=== PATIENT | male | born 1965 | race Caucasian/White ===

== ENCOUNTER 2021-05-22 13:40 | Inpatient (IN) | payer OTHER, SELFPAY ==
[~2021-05-22] VITALS: Ht 170.2 cm; Wt 126.1 kg
[~2021-05-22 13:40] MED LIST: POTASSIUM CHLORIDE 10 MEQ TABER PO PRN
[2021-05-22 13:52] VITALS: BP 131/89
[2021-05-22] MEDS ORDERED: DEXAMETHASONE 4 MG/ML VIAL IVP ONE (15:55)
[2021-05-22] MEDS ORDERED: AZITHROMYCIN 500 MG in DEXTROSE 5% 250 ML IV ONE (16:45)
[2021-05-22 17:03] LABS: BASOPHILS % (AUTO) 0.1 % (0.0-2.0); EOSINOPHILS # (AUTO) 0.1 K/uL (0-0.4); EOSINOPHILS % (AUTO) 0.8 % (0.0-4.0); HEMATOCRIT 42.9 % (36-52); HEMOGLOBIN 14.6 g/dL (12.0-18.0); LYMPHOCYTES % (AUTO) 14.2 % (20.5-51.1); MEAN CORPUSCULAR HEMOGLOBIN 30 pg (27-31); MEAN CORPUSCULAR HGB CONC 34 g/dL (33-37); MEAN CORPUSCULAR VOLUME 87.7 fL (80-94); MONOCYTES # (AUTO) 0.5 K/uL (0.8-1.0); MONOCYTES % (AUTO) 8.1 % (1.7-9.3); NEUTROPHILS # (AUTO) 5.2 K/uL (1.8-7.7); NEUTROPHILS % (AUTO) 76.8 % (42.2-75.2); PLATELET COUNT (AUTO) 275 K/uL (140-450); RED BLOOD CELL COUNT(AUTO) 4.89 MIL/uL (4.20-6.10); RED CELL DISTRIBUTION WIDTH 13.5 % (11.6-13.7); WHITE BLOOD COUNT (AUTO) 6.8 K/uL (4.8-10.8)
[2021-05-22 17:47] LABS: C-REACTIVE PROTEIN QUANT 12.3 mg/dL (0.0-0.9)
[2021-05-22 18:18] LABS: ALBUMIN 3.2 g/dL (3.4-5.0); CREATININE 0.8 mg/dL (0.6-1.3); POTASSIUM 3.1 mmol/L (3.5-5.1); TOTAL BILIRUBIN 0.7 mg/dL (0.0-1.0)
[2021-05-22 18:38] LABS: CKMB RELATIVE INDEX 0.2 (0.0-2.5); CREATINE KINASE MB 1.2 ng/mL (0-3.6)
[2021-05-22 18:48] LABS: D-DIMER > 5000 ng/ml (0-400)
[2021-05-22 18:51] LABS: PROTHROMBIN TIME 10.3 secs (10.8-13.4)
[2021-05-22 19:07] LABS: ANION GAP 20.3 (8-16); CARBON DIOXIDE 23.8 mmol/L (21-32)
[2021-05-22] MEDS ORDERED: HYDROcodone/APAP 5/325 MG 1 TAB TAB PO PRN (19:25)
[2021-05-22] MEDS ORDERED: SODIUM PHOS / POTASSIUM PHOS 1 PKT PDR PO PRN (19:25)
[2021-05-22] MEDS ORDERED: MORPHINE SULFATE 2 MG/ML SYR IVP PRN (19:25)
[2021-05-22] MEDS ORDERED: MAGNESIUM OXIDE 400 MG TAB PO PRN (19:25)
[2021-05-22] MEDS ORDERED: DOCUSATE SODIUM 100 MG GELCAP PO PRN (19:25)
[2021-05-22] MEDS ORDERED: ONDANSETRON 4 MG/2 ML VIAL IM/IVP PRN (19:25)
[2021-05-22] MEDS ORDERED: ACETAMINOPHEN 325 MG TAB PO PRN (19:25)
[2021-05-22 20:03] LABS: MAGNESIUM 2.4 mg/dL (1.8-2.4); PHOSPHORUS 3.6 mg/dL (2.5-4.9)
[2021-05-22 20:12] LABS: FIBRINOGEN 542 mg/dL (200-400)
[2021-05-23 00:05] LABS: RSV NEGATIVE (NEGATIVE)
--- NOTE | 2021-05-23 01:33 | NUR ---
PT TAKEN TO BED 3
[2021-05-23] MEDS ORDERED: ALBUTEROL SULFATE/IPRATROPIU 3 ML SOL IH PRN (02:25)
--- NOTE | 2021-05-23 03:25 | NUR ---
PT GIVEN WATER AND URINAL. ALL VSS AT THIS TIME
--- NOTE | 2021-05-23 04:00 | NUR ---
NOTIFIED ÁNGELA ARRIAGA TO ESTABLISH IV. ÁNGELA AND BART NEWMAN WERE UNSUCCESSFUL AT IV PLACEMENT. ÁNGELA TO NOTIFY ERMD THAT PLACEMENT ASSISTANCE NEEDED
--- NOTE | 2021-05-23 05:32 | NUR ---
PT SISTER CALLED. GOT CONSENT FROM PT TO RELEASE INFO TO HER. PT PROVDIDED TWO BLANKETS
--- NOTE | 2021-05-23 07:30 | NUR ---
Received pt from night nurse. Pt is sitting at chair and resting. O2 at 94 % with O2 4 L via NC. Pt is using accesory muscle to breath and labored. Pt stated that he feels okay. Pt requested to have breakfast, will serve the tray as soon as it arrives.
[2021-05-23] MEDS ORDERED: POTASSIUM CHLORIDE 10 MEQ TABER PO SCH (08:00)
--- NOTE | 2021-05-23 08:30 | NUR ---
Breakfast served, noted with good appetite.
[2021-05-23 08:34] LABS: BASOPHILS % (AUTO) 0.3 % (0.0-2.0); EOSINOPHILS # (AUTO) 0.1 K/uL (0-0.4); EOSINOPHILS % (AUTO) 1.3 % (0.0-4.0); HEMATOCRIT 42.1 % (36-52); HEMOGLOBIN 14.4 g/dL (12.0-18.0); LYMPHOCYTES % (AUTO) 16.3 % (20.5-51.1); MEAN CORPUSCULAR HEMOGLOBIN 30 pg (27-31); MEAN CORPUSCULAR HGB CONC 34 g/dL (33-37); MEAN CORPUSCULAR VOLUME 87.6 fL (80-94); MONOCYTES # (AUTO) 0.7 K/uL (0.8-1.0); MONOCYTES % (AUTO) 11.2 % (1.7-9.3); NEUTROPHILS # (AUTO) 4.6 K/uL (1.8-7.7); NEUTROPHILS % (AUTO) 70.9 % (42.2-75.2); PLATELET COUNT (AUTO) 293 K/uL (140-450); RED BLOOD CELL COUNT(AUTO) 4.81 MIL/uL (4.20-6.10); RED CELL DISTRIBUTION WIDTH 13.6 % (11.6-13.7); WHITE BLOOD COUNT (AUTO) 6.4 K/uL (4.8-10.8)
--- NOTE | 2021-05-23 08:53 | NUR ---
Updated plan of care with sister Margie.
[2021-05-23] MEDS ORDERED: ENOXAPARIN 40 MG/0.4 ML SYR SUBQ ONE (09:00)
[2021-05-23] MEDS: ENOXAPARIN 40 MG/0.4 ML SYR SUBQ SCH (09:50)
[2021-05-23] MEDS: ZINC SULF 220 MG CAP PO SCH (09:50)
[2021-05-23] MEDS: ASCORBIC ACID 500 MG TAB PO SCH (09:50)
[2021-05-23] MEDS: VITAMIN D 400 IU TAB PO SCH (09:50)
[2021-05-23] MEDS: PANTOPRAZOLE 40 MG TABEC PO SCH (09:50)
[2021-05-23] MEDS: DEXAMETHASONE 10 MG/ML VIAL IVP SCH (09:50)
[2021-05-23 10:10] LABS: ANION GAP 16.5 (8-16); CARBON DIOXIDE 27.8 mmol/L (21-32); CREATININE 0.8 mg/dL (0.6-1.3); POTASSIUM 3.3 mmol/L (3.5-5.1)
--- NOTE | 2021-05-23 10:26 | NUR ---
IV started to R hand #22
[2021-05-23] MEDS ORDERED: DEXAMETHASONE 4 MG/ML VIAL ONE (11:09)
[2021-05-23] MEDS ORDERED: cefTRIAXone 1,000 MG VIAL ONE (11:09)
[2021-05-23] MEDS ORDERED: AZITHROMYCIN 500 MG INJ VIAL IV ONE (11:09)
[2021-05-23] MEDS ORDERED: baricitinib COMM. ORDER 1 EA MISC MC PRN (11:30)
[2021-05-23] MEDS ORDERED: remdesivir COMMUNICATION ORDER 1 EA MISC MC PRN (11:30)
[2021-05-23] MEDS ORDERED: remdesivir CLINICAL MONITORING 1 EA MISC MC PRN (14:05)
--- NOTE | 2021-05-23 14:36 | NUR ---
Updated plan of care with brother Lazaro.
[2021-05-23] MEDS ORDERED: REMDESIVIR. 200 MG in NACL 0.9% 100 ML IV SCH (15:00)
[2021-05-23] MEDS: BARICITINIB 2 MG TAB PO SCH (15:34)
[2021-05-23 16:10] LABS: APPEARANCE,URINE CLEAR (CLEAR); BILIRUBIN,URINE NEGATIVE (NEGATIVE); BLOOD, URINE 1+ (NEGATIVE); COLOR,URINE YELLOW (YELLOW); LEUKOCYTE ESTERASE ,URINE NEGATIVE (NEGATIVE); NITRITE, URINE NEGATIVE (NEGATIVE); UGLUCOSE NEGATIVE (NEGATIVE)
[2021-05-23 16:30] LABS: WBC,URINE 0-5 /HPF (0-5)
--- NOTE | 2021-05-23 16:52 | NUR ---
PATIENT HAS BEEN SCREENED AND CATEGORIZED MODERATE NUTRITION RISK. PATIENT WILL BE SEEN WITHIN 3-5 DAYS OF ADMISSION. / JASON COFFEY RD
--- NOTE | 2021-05-23 19:28 | NUR ---
Report received from BART Pope for continuity of pt care at this time.
--- NOTE | 2021-05-23 19:35 | NUR ---
PT LAYING SUPINE IN BED LOCKED IN LOWEST POSITION W X1 SIDERAIL UP. PT DENIES ANY PAIN, REPORTS MILD SOB BUT MUCH IMPROVEMENT FROM WHEN HE INITIALLY CAME IN. PT DENIES ANY DIZZYNESS, WEAKNESS, NAUSEA OR OTHER SYMPTOMS. ALL NEEDS MET AT THIS TIME. PT ON 4L NC W O2 SAT AT 95%, OTHER VSS. BREATHING EVEN AND UNLABORED. NAD NOTED, WILL CONTINUE TO MONITOR.
--- NOTE | 2021-05-23 20:19 | NUR ---
SPOKE W PT BROTHER PETER YANCEY, TO PROVIDE UPDATE ON PT HEALTH STATUS/INFO. PER PT OK TO PROVIDE BROTHER W INFO.
--- NOTE | 2021-05-23 22:12 | NUR ---
PT REPORTS FEELING FINE, DOES NOT NEED ANYTHING AT THIS TIME. ALL NEEDS MET. VSS.
--- NOTE | 2021-05-24 00:48 | NUR ---
PT APPEARS TO BE RESTING W EYES CLOSED IN SUPINE POSITION. NBED LOCKED IN LOWEST POSITION W X1 SIDERAIL UP. PT CONNECTED TO MONITOR W VSS. BREATHING EVEN AND UNLABORED. NAD NOTED, WILL CONTINUE TO MONITOR.
--- NOTE | 2021-05-24 03:09 | NUR ---
Pt report given to KOFI SHIN. Transfer of care at this time.
--- NOTE | 2021-05-24 08:10 | NUR ---
Pt is AOX4, able to make all needs known. Denies N/V/D/CP at this time. Resp even and unlabored on 4LPM (95%). Lung sounds are clear/diminished. Non-productive cough. VSS. Pt able to reposition self. SR up for safety. Denies pain at this time. Call light in reach.
[2021-05-24] MEDS: VITAMIN D 400 IU TAB PO SCH (09:00)
[2021-05-24 09:08] LABS: BASOPHILS # (AUTO) 0.1 K/uL (0.00-0.22); BASOPHILS % (AUTO) 0.8 % (0.0-2.0); EOSINOPHILS % (AUTO) 0.1 % (0.0-4.0); HEMATOCRIT 45.5 % (36-52); HEMOGLOBIN 15.4 g/dL (12.0-18.0); LYMPHOCYTES % (AUTO) 10.8 % (20.5-51.1); MEAN CORPUSCULAR HEMOGLOBIN 30 pg (27-31); MEAN CORPUSCULAR HGB CONC 34 g/dL (33-37); MEAN CORPUSCULAR VOLUME 88.1 fL (80-94); MONOCYTES # (AUTO) 0.7 K/uL (0.8-1.0); MONOCYTES % (AUTO) 8.1 % (1.7-9.3); NEUTROPHILS # (AUTO) 7.1 K/uL (1.8-7.7); NEUTROPHILS % (AUTO) 80.2 % (42.2-75.2); PLATELET COUNT (AUTO) 325 K/uL (140-450); RED BLOOD CELL COUNT(AUTO) 5.16 MIL/uL (4.20-6.10); RED CELL DISTRIBUTION WIDTH 13.4 % (11.6-13.7); WHITE BLOOD COUNT (AUTO) 8.9 K/uL (4.8-10.8)
[2021-05-24 09:47] LABS: ALBUMIN 3.2 g/dL (3.4-5.0); ANION GAP 16.4 (8-16); CARBON DIOXIDE 26.4 mmol/L (21-32); CREATININE 0.8 mg/dL (0.6-1.3); POTASSIUM 3.8 mmol/L (3.5-5.1); TOTAL BILIRUBIN 0.5 mg/dL (0.0-1.0)
[2021-05-24] MEDS: DEXAMETHASONE 10 MG/ML VIAL IVP SCH (10:00)
[2021-05-24] MEDS: PANTOPRAZOLE 40 MG TABEC PO SCH (10:00)
[2021-05-24] MEDS: ASCORBIC ACID 500 MG TAB PO SCH (10:00)
[2021-05-24] MEDS: ENOXAPARIN 40 MG/0.4 ML SYR SUBQ SCH (10:00)
[2021-05-24] MEDS: ZINC SULF 220 MG CAP PO SCH (10:00)
--- NOTE | 2021-05-24 12:10 | NUR ---
Pt assisted to the commode, steady on his feet with elevated WOB during ambulation. Pt able to tolerate standing well at this time.
--- NOTE | 2021-05-24 14:35 | NUR ---
Pt is AOX4, able to make all needs known. Resting comfortably at this time. Denies N/V/D/CP at this time. Resp even and unlabored on 4LPM (93%). Lung sounds are clear/diminished. Non-productive cough. VSS. Pt able to reposition self. SR up for safety. Denies pain at this time. Call light in reach.
[2021-05-24] MEDS: REMDESIVIR. 100 MG in NACL 0.9% 100 ML IV SCH (16:32)
[2021-05-24] MEDS: BARICITINIB 2 MG TAB PO SCH (16:33)
--- NOTE | 2021-05-24 17:45 | NUR ---
Patient appears to be resting comfortably in bed. Vital Signs within normal limits. Respirations even and unlabored.
--- NOTE | 2021-05-24 18:44 | NUR ---
Dr Ribeiro at bedside to assess pt at this time.
--- NOTE | 2021-05-24 19:33 | NUR ---
Pt report given to Shamir ARRIAGA. Transfer of care at this time.
--- NOTE | 2021-05-24 21:29 | NUR ---
PATIENT STABLE VITALS SIGNS IN NORMAL LIMITS NO COMPLAINING OF PAIN OR SOB //DiCaprio RN
--- NOTE | 2021-05-25 03:12 | NUR ---
PATIENT STABLE NO COMPLAINING OF PAIN VITALS SIGNS IN NORMAL LIMITS SLEEPING COMFORTABLE //DiCaprio RN
--- NOTE | 2021-05-25 05:47 | NUR ---
PATIENT STABLE SLEEPING AT THIS TIME NOT COMPLAINING OF PAIN COUGH OR SOB //DiCaprio RN
--- NOTE | 2021-05-25 06:57 | NUR ---
PATIENT ALERT ORIENT NOT COMPLAINIG OF PAIN VITALS SIGNS IN NORMAL LIMITS NOT COUGH OR SOB AT THIS TIME //DiCaprio RN
--- NOTE | 2021-05-25 07:35 | NUR ---
Report and continuation of care received from BART Dick.
--- NOTE | 2021-05-25 07:45 | NUR ---
Patient sitting upright in bed in position of comfort. O2 4L by NC SpO2 93% patient denies SOB, dizziness, headache. monitor technician in place; HR 92. Bed locked in lowest position, side rails x 1.
[2021-05-25 08:18] LABS: ANION GAP 15.5 (8-16); CARBON DIOXIDE 25.4 mmol/L (21-32); CREATININE 0.8 mg/dL (0.6-1.3); POTASSIUM 3.9 mmol/L (3.5-5.1); TOTAL BILIRUBIN 0.4 mg/dL (0.0-1.0)
[2021-05-25 08:24] LABS: HEMOGLOBIN 14.9 g/dL (12.0-18.0); MONOCYTES # (AUTO) 1.1 K/uL (0.8-1.0); MONOCYTES % (AUTO) 7.3 % (1.7-9.3); RED CELL DISTRIBUTION WIDTH 13.6 % (11.6-13.7)
[2021-05-25 08:34] LABS: BASOPHILS % (AUTO) 0.3 % (0.0-2.0); EOSINOPHILS # (AUTO) 0.1 K/uL (0-0.4); EOSINOPHILS % (AUTO) 0.5 % (0.0-4.0); HEMATOCRIT 43.9 % (36-52); LYMPHOCYTES # (AUTO) 1.6 K/uL (2.0-11.5); LYMPHOCYTES % (AUTO) 11.2 % (20.5-51.1); MEAN CORPUSCULAR HEMOGLOBIN 30 pg (27-31); MEAN CORPUSCULAR HGB CONC 34 g/dL (33-37); NEUTROPHILS # (AUTO) 11.9 K/uL (1.8-7.7); NEUTROPHILS % (AUTO) 80.7 % (42.2-75.2); PLATELET COUNT (AUTO) 414 K/uL (140-450); RED BLOOD CELL COUNT(AUTO) 4.99 MIL/uL (4.20-6.10); WHITE BLOOD COUNT (AUTO) 14.8 K/uL (4.8-10.8)
--- NOTE | 2021-05-25 08:40 | NUR ---
P.T. NOTES P.T. EVAL COMPLETED; REFER TO EVAL FOR DETAILS; O2 SAT ROOM AIR=85%, 4L=94%.
[2021-05-25] MEDS: DEXAMETHASONE 10 MG/ML VIAL IVP SCH (09:18)
[2021-05-25] MEDS: VITAMIN D 400 IU TAB PO SCH (09:19)
[2021-05-25] MEDS: PANTOPRAZOLE 40 MG TABEC PO SCH (09:19)
[2021-05-25] MEDS: ASCORBIC ACID 500 MG TAB PO SCH (09:19)
[2021-05-25] MEDS: ZINC SULF 220 MG CAP PO SCH (09:19)
[2021-05-25] MEDS: ENOXAPARIN 40 MG/0.4 ML SYR SUBQ SCH (09:20)
--- NOTE | 2021-05-25 09:30 | NUR ---
Patient sitting in chair with keyseater operator in place. Equal chest rise and fall. Pt reports "I feel a lot better." Remains on 4L by NC SpO2 94%. Bed locked in lowest position, side rails x 1.
--- NOTE | 2021-05-25 13:10 | NUR ---
Lunch mealtray at bedside. Pt completing meal at this time.
--- NOTE | 2021-05-25 13:50 | NUR ---
Pt completed 90% of meal. All pt needs met at this time. acute care occupational therapist remains in place. Bed locked in lowest position, side rails x 1, call light in reach.
--- NOTE | 2021-05-25 14:40 | NUR ---
Bedside commode provided at pt bedside.
--- NOTE | 2021-05-25 15:10 | NUR ---
Pt with one bowel movement in bedside commode. All pt needs met.
--- NOTE | 2021-05-25 15:20 | NUR ---
PT TITRATED FROM 4L TO 3L VIA NC; SPO2 94%. PT DENIES SOB. EQUAL CHEST RISE AND FALL. COSMETOLOGIST IN PLACE. BED LOCKED IN LOWEST POSITION, SIDE RAILS X 1.
[2021-05-25] MEDS: REMDESIVIR. 100 MG in NACL 0.9% 100 ML IV SCH (15:21)
[2021-05-25] MEDS: BARICITINIB 2 MG TAB PO SCH (15:21)
--- NOTE | 2021-05-25 16:15 | NUR ---
Dr. Rubin is evaluating patient at bedside.
--- NOTE | 2021-05-25 16:30 | NUR ---
Patient remains on 3L by NC denies SOB. monitor tech in place. SpO2 93%. Bed locked in lowest position, side rails x 1.
--- NOTE | 2021-05-25 18:20 | NUR ---
Dinner mealtray at bedside. Pt sitting upright completing meal at this time.
--- NOTE | 2021-05-25 19:07 | NUR ---
Report and transfer of care endorsed to BART Dick.
--- NOTE | 2021-05-25 20:24 | NUR ---
PATIENT ALERT ORIENTED NOT COMPLAINING OF PAIN VITALS SIGNS IN NORMAL LIMITS ADDMITED TO TELE ROOM 125 A REPORTED GAVE TO MARCIA ARRIAGA WE CLARIFIED ABOUT THE MEDICATION FOR COVID DESEASED THAT NEED TO DC BECAUSE THE PATIENT IS ACTUALLY COVID NEGATIVE THOSE ARE RENDESIVIR LOVENOX AND DECADRON EXPECIFIC MED FOR COVID //DiCaprio RN
[2021-05-25 22:50] VITALS: BP 116/74
--- NOTE | 2021-05-25 22:50 | NUR ---
Admitted from ER TO TELEMETRY UNIT, with chief complaint of SHORTNESS OF BREATH, FEVER, BODY WEAKNESS, LOSS OF APPETITE THAT STARTED 8 DAYS AGO. AWAKE, A/OX4, 55 y/o ,Male, Cooperative. RESPIRATION EVEN AND UNLABORED. 02 SAT 95% ON 2 LITERS VIA N/C. VERBALIZED HE HAS DRY COUGH WITH OCCASIONAL MINIMAL AMOUNT OF PHLEGM, WHITE IN COLOR. IV SALINE LOCK AT THE LEFT AC G20, PATENT AND INTACT. HEAD TO TOE ASSESSMENT DONE WITH CHARGE NURSE JUSTIN, SKIN IS INTACT. DENIES PAIN 0/10. oriented to call light, bed, phone,television, bathroom, smoking policy,visiting hours, procedures, ID bracelet on. Belongings list checked.
[2021-05-26] VITALS: BP 133/75
--- NOTE | 2021-05-26 01:00 | NUR ---
AMBULATED TO THE BR TO VOID, GAIT STEADY.
--- NOTE | 2021-05-26 02:28 | NUR ---
Patient's Plan of Care was discussed and reviewed with HULL SORTER: MARCIA BISHOP.
--- NOTE | 2021-05-26 03:00 | NUR ---
SLEEPING COMFORTABLY IN BED, RESPIRATION EVEN AND UNLABORED. CALL LIGHT IN REACH.
[2021-05-26 04:00] VITALS: BP 115/71
--- NOTE | 2021-05-26 05:00 | NUR ---
AWAKE IN BED, VERBALIZED HE WAS ABLE TO SLEEP WELL. NO SOB NOTED DURING THE SHIFT.
--- NOTE | 2021-05-26 07:00 | NUR ---
CONDITION REMAIN STABLE. WILL ENDORSE TO AM SHIFT NURSE FOR CONTINUITY OF CARE
[2021-05-26 07:23] LABS: BASOPHILS % (AUTO) 0.4 % (0.0-2.0); EOSINOPHILS % (AUTO) 0.1 % (0.0-4.0); HEMATOCRIT 42.1 % (36-52); HEMOGLOBIN 14.3 g/dL (12.0-18.0); LYMPHOCYTES # (AUTO) 1.6 K/uL (2.0-11.5); LYMPHOCYTES % (AUTO) 13.2 % (20.5-51.1); MEAN CORPUSCULAR HEMOGLOBIN 30 pg (27-31); MEAN CORPUSCULAR HGB CONC 34 g/dL (33-37); MEAN CORPUSCULAR VOLUME 87.3 fL (80-94); MONOCYTES # (AUTO) 1.1 K/uL (0.8-1.0); MONOCYTES % (AUTO) 8.9 % (1.7-9.3); NEUTROPHILS # (AUTO) 9.6 K/uL (1.8-7.7); NEUTROPHILS % (AUTO) 77.4 % (42.2-75.2); PLATELET COUNT (AUTO) 430 K/uL (140-450); RED BLOOD CELL COUNT(AUTO) 4.82 MIL/uL (4.20-6.10); RED CELL DISTRIBUTION WIDTH 13.4 % (11.6-13.7); WHITE BLOOD COUNT (AUTO) 12.4 K/uL (4.8-10.8)
--- NOTE | 2021-05-26 07:30 | NUR ---
RECEIVED PT AAOX4. NO SOB NOTED. NO C/O PAIN AT THIS TIME. IV TO LAC PATENT AND INTACT. CHEST DIMINISHED AIR ENTRY TO THE BASES, ON 2PLM OXYGEN VIA NASAL CANNULA. ABDOMEN SOFT, BOWEL SOUNDS PRESENT. PT ON DROPLET ISOLATION FOR COVID POSITIVE. INSTRUCTED PT TO CALL FOR ASSISTANCE, CALL LIGHT WITHIN REACH, VERBALIZED UNDERSTANDING.
[2021-05-26 07:52] LABS: ALBUMIN 2.9 g/dL (3.4-5.0); ANION GAP 12.8 (8-16); CREATININE 0.8 mg/dL (0.6-1.3); POTASSIUM 3.8 mmol/L (3.5-5.1); TOTAL BILIRUBIN 0.4 mg/dL (0.0-1.0)
[2021-05-26 08:00] VITALS: BP 135/84
[2021-05-26] MEDS: ZINC SULF 220 MG CAP PO SCH (10:00)
[2021-05-26] MEDS: ENOXAPARIN 40 MG/0.4 ML SYR SUBQ SCH (10:00)
[2021-05-26] MEDS: PANTOPRAZOLE 40 MG TABEC PO SCH (10:01)
[2021-05-26] MEDS: ASCORBIC ACID 500 MG TAB PO SCH (10:01)
[2021-05-26] MEDS: VITAMIN D 400 IU TAB PO SCH (10:01)
[2021-05-26] MEDS: DEXAMETHASONE 10 MG/ML VIAL IVP SCH (10:02)
--- NOTE | 2021-05-26 11:29 | NUR ---
(05/26/21) RD INITIAL ASSESSMENT COMPLETED PLEASE REFER TO NUTRITION ASSESSMENT UNDER CARE ACTIVITY FOR ESTIMATED NUTRITIONAL NEEDS. RD RECOMMENDATIONS: 1. CONTINUE ON CARDIAC DIET TOLERATED. 2. CONSULT RDN PRN. 3. RD WILL F/U 3-5 DAYS; MODERATE RISK. ALEXEI CHAMBERS MS, RDN
[2021-05-26 12:00] VITALS: BP 123/75
[2021-05-26] MEDS: BARICITINIB 2 MG TAB PO SCH (15:47)
[2021-05-26] MEDS: REMDESIVIR. 100 MG in NACL 0.9% 100 ML IV SCH (15:48)
[2021-05-26 16:00] VITALS: BP 127/78
--- NOTE | 2021-05-26 19:30 | NUR ---
PT AWAKE, NO SOB NOTED. NO C/O PAIN AT THIS TIME. ENDORSED TO ANODIZER NURSE FOR CONTINUITY OF CARE.
--- NOTE | 2021-05-26 19:45 | NUR ---
PT IS AWAKE.A & OX4.SL PATENT.RESP.UNLABORED W/O2 AT 2L/NC.LUNGS DIMINISHED. HR IS SR/SA.DENIES ANY PAIN OR DISCOMFORT.CALL LIGHT WITHIN REACH.WILL CONT.MONITORING.
[2021-05-26 20:00] VITALS: BP 131/82
[2021-05-27] VITALS: BP 116/76
--- NOTE | 2021-05-27 00:15 | NUR ---
PT'S CONDITION STABLE.NO SOB NOTED.VS STABLE.HR IS SB/SA.CALL LIGHT WITHIN REACH.
[2021-05-27 04:00] VITALS: BP 108/66
[2021-05-27 05:54] LABS: BASOPHILS # (AUTO) 0.1 K/uL (0.00-0.22); BASOPHILS % (AUTO) 0.5 % (0.0-2.0); EOSINOPHILS % (AUTO) 0.2 % (0.0-4.0); LYMPHOCYTES # (AUTO) 1.7 K/uL (2.0-11.5); LYMPHOCYTES % (AUTO) 13.5 % (20.5-51.1); MEAN CORPUSCULAR HEMOGLOBIN 30 pg (27-31); MEAN CORPUSCULAR HGB CONC 35 g/dL (33-37); MEAN CORPUSCULAR VOLUME 87.2 fL (80-94); MONOCYTES # (AUTO) 1.1 K/uL (0.8-1.0); MONOCYTES % (AUTO) 8.5 % (1.7-9.3); NEUTROPHILS # (AUTO) 9.7 K/uL (1.8-7.7); NEUTROPHILS % (AUTO) 77.3 % (42.2-75.2); PLATELET COUNT (AUTO) 412 K/uL (140-450); RED BLOOD CELL COUNT(AUTO) 4.93 MIL/uL (4.20-6.10); RED CELL DISTRIBUTION WIDTH 13.4 % (11.6-13.7); WHITE BLOOD COUNT (AUTO) 12.6 K/uL (4.8-10.8)
[2021-05-27 06:52] LABS: ALBUMIN 3.1 g/dL (3.4-5.0); ANION GAP 11.7 (8-16); CARBON DIOXIDE 28.4 mmol/L (21-32); CREATININE 0.8 mg/dL (0.6-1.3); POTASSIUM 4.1 mmol/L (3.5-5.1); TOTAL BILIRUBIN 0.4 mg/dL (0.0-1.0)
[2021-05-27 06:56] LABS: MAGNESIUM 2.2 mg/dL (1.8-2.4); PHOSPHORUS 3.5 mg/dL (2.5-4.9)
[2021-05-27 08:00] VITALS: BP 115/74
--- NOTE | 2021-05-27 08:00 | NUR ---
RECEIVED REPORT FROM QA SOFTWARE TEST ENGINEER FOR CONTINUITY OF CARE. PATIENT ALERT AWAKE ORIENTED X4, NOT IN ANY DISTRESS NOTED. ON 2L NASAL CANNULA, SATURATING 95%, DENIES PAIN AND SOB AT THIS TIME. ON HEART MONITOR SHOWS SR HR-60. DROPLET PRECAUTION OBSERVED. NEEDS ATTENDED. WILL CONTINUE TO MONITOR.
--- NOTE | 2021-05-27 08:00 | NUR ---
ENDORSED TO AM RN IN STABLE CONDITION.
[2021-05-27] MEDS ORDERED: ZINC220C29 PO (09:24)
[2021-05-27] MEDS ORDERED: APIX2.5 PO (09:24)
[2021-05-27] MEDS ORDERED: VITC500 PO (09:24)
[2021-05-27] MEDS ORDERED: VITD400 PO (09:24)
[2021-05-27] MEDS ORDERED: BARI2TAB PO (09:24)
[2021-05-27] MEDS ORDERED: DEC4 PO (09:24)
[2021-05-27] MEDS ORDERED: PANT40EC56 PO (09:24)
[2021-05-27] MEDS: ASCORBIC ACID 500 MG TAB PO SCH (09:30)
[2021-05-27] MEDS: PANTOPRAZOLE 40 MG TABEC PO SCH (09:30)
[2021-05-27] MEDS: VITAMIN D 400 IU TAB PO SCH (09:30)
[2021-05-27] MEDS: DEXAMETHASONE 10 MG/ML VIAL IVP SCH (09:30)
[2021-05-27] MEDS: ZINC SULF 220 MG CAP PO SCH (09:30)
[2021-05-27] MEDS: ENOXAPARIN 40 MG/0.4 ML SYR SUBQ SCH (09:31)
--- NOTE | 2021-05-27 11:45 | NUR ---
REMOVED OXYGEN AND TOLD PATIENT TO AMBULATE INSIDE THE ROOM WITHOUT OXYGEN AND I WILL RE CHCK LATER. WILL CONTINUE TO MONITOR.
[2021-05-27 12:00] VITALS: BP 130/86
--- NOTE | 2021-05-27 12:15 | NUR ---
PATIENT SATURATION CHECKED 95% ON ROOM AIR. WILL NOTIFY CM. WILL CONTINUE TO MONITOR.
--- NOTE | 2021-05-27 13:50 | NUR ---
DISCHARGE PLANNING Order for Home O2. Per nurse pt ambulating on room air 95%, does not qualify for home O2.
[2021-05-27] MEDS: BARICITINIB 2 MG TAB PO SCH (14:23)
[2021-05-27] MEDS: REMDESIVIR. 100 MG in NACL 0.9% 100 ML IV SCH (14:23)
--- NOTE | 2021-05-27 17:00 | NUR ---
DISCHARGE PATIENT TO HOME VIA WHEELCHAIR WITH DC INSTRUCTION GIVEN AND VERBALIZED UNDERSTANDING. QUESTION ANSWERED. IN STABLE CONDITION.
== END 2021-05-27 17:10 | disposition home or self-care (01) | DRG 177 ==
LOC: MED 13:40 → MTU 19:25 → MMU 05-25 16:47
PROVIDERS: ADMIT Hospitalist; ATTEND Hospitalist
PROC: XW033E5 Introduction of Remdesivir Anti-infective into Peripheral Vein, Percutaneous Approach, New Technology Group 5 (ICD-10-PCS; principal; 2021-05-23)
DX: U07.1 COVID-19 (principal); J96.01 Acute respiratory failure with hypoxia; J12.82 Pneumonia due to coronavirus disease 2019; E44.0 Moderate protein-calorie malnutrition; Z68.41 Body mass index [BMI] 40.0-44.9, adult; E66.01 Morbid (severe) obesity due to excess calories; E87.6 Hypokalemia; Z86.16 Personal history of COVID-19
CPT/HCPCS: 36415; 71045; 80048; 80053; 81001; 82550; 82553; 83605; 83615; 83735; 83880; 84100; 84484; 85025; 85379; 85384; 85610; 85730; 86140; 87040; 87081; 87086; 87420; 93005; 96372; 96374; 97163-GP; 99291; J0456; J0696; J1100; J1650; Q0092; U0003